=== PATIENT | female | born 1980 | race Native Hawaiian/Other Pacific Islander ===

== ENCOUNTER → 2016-09-12 | Day surgery (SDC) | payer OTHER ==
[~2016-09-12] VITALS: Ht 165.1 cm; Wt 107.5 kg
[~2016-09-12] MED LIST: *morphine SULFATE 8 MG/ML PERIprocedure ONLY ONE; ACETIC ACID 0.25% IRRIGATION ONE; CHLORHEXIDINE GLUCONATE 2 % 1 PACK (2 CLOTHS) TOPICAL PRN; DARV PO; DO NOT ADM ANY ANTICOAGULANT DRUGS PRN; FAMOTIDINE 20 MG/2 ML VIAL ONE; FERR200T PO; FERRIC SUBSULFATE 8 ML TOP SOLN TOPICAL ONE; INSULIN HUMAN REGULAR 1,000 UNITS/10 ML VIAL SQ PRN; IRR IRRIGATION ONE; KETOROLAC TROMETHAMINE 30 MG/ML (IVP) VIAL IV PUSH ONE; KETOROLAC TROMETHAMINE 60 MG/2 ML (IM) VIAL IM ONE; LACTATED RINGER'S 1000 ML IV PRN; LIDOCAINE HCL 1% 20 ML VIAL INFIL ONE; METOPROLOL TARTRATE 25 MG TAB PO PRN; MIDAZOLAM HCL 2 MG/2 ML VIAL ONE; NAPR550 PO; ONDANSETRON HCL 4 MG/2 ML VIAL IV PUSH ONE; POVIDONE IODINE 5% (ANTISEPSIS KIT) 4 APPLICATIONS EACH NARE PRN; PREN0.01 PO; PROPOFOL 200 MG/20 ML AMP IV ONE; SODIUM CHLORID 0.9% 500 ML IV PRN; ceFAZolin INJ 1,000 MG VIAL IV ONE; fentaNYL CITRATE 250 MCG/5 ML AMP ONE; oxyCODONE/ACETAMINOPHEN 5 MG/325 MG TAB PO PRN
[2016-09-12 11:30] VITALS: BP 135/82; PULSE 95; RESP 18; TEMP 98.1; O2SAT 98
[2016-09-12 16:32] VITALS: BP 102/81; PULSE 84; RESP 20; TEMP 97.4; O2SAT 95
--- NOTE | 2016-09-13 09:12 | MP ---
cc: BRANDIE MARTINEZ KELLY L. MD SHOEMAKER, JAMES R. D.O. DATE OF SURGERY: 09/12/2016 PREOPERATIVE DIAGNOSIS Cervical adenocarcinoma in situ. POSTOPERATIVE DIAGNOSIS 1. Cervical adenocarcinoma in situ. 2. Suspicion for invasive cancer. PROCEDURE Examination under anesthesia, multiple endocervical and cervical biopsies, endocervical and endometrial curetting. SURGEON Armida Holliday. ACID TANK CLEANER [employer] Risk Management Intern. ANESTHESIA Laryngeal mask. ESTIMATED BLOOD LOSS 20 cc. HISTORY This is a 35-year-old female with abnormal Pap smear which lead to further evaluation. She underwent a LEEP procedure. The LEEP procedure showed cervical adenocarcinoma in situ. The adenocarcinoma in situ extended to the apex of the LEEP and endocervical curetting proximal to the apex of the LEEP also showed adenocarcinoma in situ such that there were positive margins. She was counseled regarding these findings and the need for further information and to clarify the presence or absence of invasive disease. She has been counseled regarding these findings and recommendations and presents now for that endeavor. She is seen again in the pre-op holding area. The findings are again reviewed. Questions were answered and the plan of care is discussed. She understands and wishes to move forward. FINDINGS On exam under anesthesia the cervix grossly appears abnormal. It is not clear as to whether or not the friable-appearing cervix centrally in the lower portion of the ectocervix is due to some slow healing from the LEEP procedure or neoplastic change. The uterus itself is prominent and retroverted. The cervix is prominent, approximately 4-5 cm. The ectocervix is smooth circumferentially but there is a lot of soft friable tissue in the center of the cervix suspicious for invasive disease. There is no overt pelvic mass or nodularity. There is some mobility to the uterus and cervix. DETAILS OF PROCEDURE The patient is taken to the operating room and placed in dorsal lithotomy position. After laryngeal mask anesthesia was administered a timeout was undertaken. The patient was identified by sight recognition and hospital ID bracelet, and the proposed procedure was reviewed and confirmed. Exam under anesthesia was performed with findings as described above. She was prepped and draped in a sterile fashion with in and out drainage of the bladder. In anticipation of a cone biopsy 0 Vicryl sutures were placed in the 3 o'clock and 9 o'clock position of the cervix for hemostasis and countertraction. This allowed a more extensive evaluation of the cervix with findings as described above such that it was felt that conization was not the best course of action given the central friable-appearing tumor suggestive of invasive disease. Multiple deep tissue biopsies were taken from high in the endocervical canal as well as from the ectocervix. Circumferentially multiple biopsies were combined for permanent histopathologic analysis. Endocervical curetting include curetting of the lower uterine segment and endometrium were obtained, again with a large volume of friable tissue and this was collectively labeled as endocervix. Focal cautery followed by topical Monsel's solution was used which rendered the tissue completely hemostatic. There were no remaining foreign objects in the vagina. Preliminary and final counts were correct. She was returned to dorsal supine position and was pending reversal of anesthesia when I left the operating room to precede her to the post-anesthesia care unit. MD KEYA Minor/AMANDA /8:03 AM /9:05 AM
== END | disposition home or self-care (01) ==
LOC: HSDC 11:05
PROVIDERS: ATTEND Obstetrics & Gynecology Gynecologic Oncology
DX: C53.0 Malignant neoplasm of endocervix (principal); C53.1 Malignant neoplasm of exocervix
CPT/HCPCS: 00940; 57500; 86850; 86900; 86901; 88305; J0690; J1885; J2250; J2270; J2405; J3010; J7120

== ENCOUNTER 2016-11-13 06:22 | Day surgery (SDC) | payer OTHER, MEDICAID ==
[~2016-11-13] VITALS: Ht 167.6 cm; Wt 106.8 kg
[~2016-11-13 06:22] MED LIST changes: -*morphine SULFATE 8 MG/ML PERIprocedure ONLY ONE; -ACETIC ACID 0.25% IRRIGATION ONE; -CHLORHEXIDINE GLUCONATE 2 % 1 PACK (2 CLOTHS) TOPICAL PRN; -DO NOT ADM ANY ANTICOAGULANT DRUGS PRN; -FAMOTIDINE 20 MG/2 ML VIAL ONE; -FERRIC SUBSULFATE 8 ML TOP SOLN TOPICAL ONE; -INSULIN HUMAN REGULAR 1,000 UNITS/10 ML VIAL SQ PRN; -IRR IRRIGATION ONE; -KETOROLAC TROMETHAMINE 30 MG/ML (IVP) VIAL IV PUSH ONE; -KETOROLAC TROMETHAMINE 60 MG/2 ML (IM) VIAL IM ONE; -LACTATED RINGER'S 1000 ML IV PRN; -LIDOCAINE HCL 1% 20 ML VIAL INFIL ONE; -METOPROLOL TARTRATE 25 MG TAB PO PRN; -MIDAZOLAM HCL 2 MG/2 ML VIAL ONE; -ONDANSETRON HCL 4 MG/2 ML VIAL IV PUSH ONE; -POVIDONE IODINE 5% (ANTISEPSIS KIT) 4 APPLICATIONS EACH NARE PRN; -PROPOFOL 200 MG/20 ML AMP IV ONE; -SODIUM CHLORID 0.9% 500 ML IV PRN; -ceFAZolin INJ 1,000 MG VIAL IV ONE; -fentaNYL CITRATE 250 MCG/5 ML AMP ONE; -oxyCODONE/ACETAMINOPHEN 5 MG/325 MG TAB PO PRN
[2016-11-13] MEDS ORDERED: NORG1TAB29 PO (06:52)
[2016-11-13 06:55] VITALS: BP 134/86; PULSE 101; RESP 18; TEMP 98.3; O2SAT 94
[2016-11-13] MEDS ORDERED: SODIUM CHLORIDE 0.9% 1000 ML IV SCH (07:00)
[2016-11-13 07:24] LABS: APTT (PATIENT) 27.6 SEC (24.3-30.1); PROTHROMBIN TIME - PATIENT 10.7 SEC (9.8-11.6)
[2016-11-13] MEDS ORDERED: ceFAZolin 2 GM PREMIX 50 ML - implanted port/tunneled catheter insertion IV SCH (07:30)
[2016-11-13] MEDS ORDERED: VANCOMYCIN 1000 MG/NS 250 ML - implanted port/tunneled catheter IV SCH ×2 (07:30)
[2016-11-13] MEDS ORDERED: MIDAZOLAM HCL 5 MG/5 ML VIAL ONE (07:50)
[2016-11-13] MEDS ORDERED: MIDAZOLAM HCL 2 MG/2 ML VIAL ONE (08:37)
--- NOTE | 2016-11-13 08:53 | PD.RAD ---
Post Procedure Progress Note Pre Procedure Diagnosis: (1) Cervical cancer Post Procedure Diagnosis: (1) Cervical cancer Procedure Date: Nov 13, 2016 Supervising Radiologist: Curt Danielle Estimated blood loss: 2cc Plan of Activity Patient to Unit: ROPU Patient Condition: Good Additional Comments: Port placed via the right IJ catheter in good position OK for use. Full dictated report to follow See PACS Report for procedural detail/treatment Curt Danielle MD Nov 13, 2016 08:53
[2016-11-13 09:00] VITALS: BP 152/99; PULSE 103; RESP 16; TEMP 97.7; O2SAT 97
[2016-11-13] MEDS ORDERED: SODIUM CHLORIDE 0.9% FLUSH 10 ML FLUSH IVF PRN (09:00)
[2016-11-13 09:15] VITALS: BP 141/96; PULSE 94; RESP 18; O2SAT 95
--- NOTE | 2016-11-13 09:28 | RADRPT ---
EXAM DATE/TIME: 11/13/2016 08:07 [facility] COMPARISON: No previous studies available for comparison. INDICATIONS : Patient with cervical cancer in need of [id number] placement. MEDICAL HISTORY : Asthma, Cervical tumor, Anemia SURGICAL HISTORY : None ENCOUNTER: Initial ACUITY: 2 months PAIN SCORE: 0/10 FLUORO TIME: 0.6 minutes IMAGE SERIES: 1 SEDATION TIME: 45 minutes ACCESS: Right internal jugular vein SEDATION: 1.) 6 mg midazolam (Versed) IV 2.) 150 mcg fentanyl (Sublimaze) IV Prophylactic antibiotics were administered with appropriate pre-procedure timing. Vancomycin within 2 hours of procedure, Ancef (or alternative) within 1 hour of procedure. DEVICE: 1. 8 [place]ian single lumen Smart power port with vortex PROCEDURE : 1. Continuous pulse oximetry and EKG monitoring. 2. Intravenous conscious sedation. 3. Ultrasound guidance for venous access. 4. Fluoroscopic guided implantable central venous port placement. The patient was placed supine. The neck was prepped in sterile fashion. Full sterile technique was u sed, including cap, mask, sterile gloves and gown, and a large sterile sheet. Hand hygiene and 2% ch lorhexidine Betadine was utilized per protocol for cutaneous antisepsis with appropriate dry time for site. Sterile gel and sterile probe cover were utilized for ultrasound guidance. The skin and sub cutaneous tissues were infiltrated with local anesthetic solution. Under direct ultrasound guidance, central venous access was accomplished in the targeted vessel. The ultrasound images depicting access guidance were stored and saved to PACS for permanent record. A s ubcutaneous pocket was created using blunt dissection. The port was introduced to the pocket. The c atheter tubing was fed through a subcutaneous tunnel to the venotomy site. The catheter tubing was c ut to a suitable length and then was introduced through a valved Peel-Away sheath and positioned with catheter tubing tip at the cavo-atrial junction level. The pocket incision was closed with subcutic ular Vicryl suture. Steri-Strips were applied. The port was flushed and locked with heparin solutio n per protocol. Sterile dressing was applied to the site. The patient tolerated the procedure well. Conscious sedation was performed with the prescribed dosages and duration as above in the presence of an independent trained radiology nurse to assist in the monitoring of the patient. EKG and oximetry remained stable throughout the procedure. The patient tolerated the procedure well and there were no complications. The patient was sent to post anesthesia recovery in stable condition. CONCLUSION: Uncomplicated ultrasound and fluoroscopic guided implanted central venous port catheter placement as described in detail above. An 8 Gambian Power port was placed. Curt Danielle MD on November 13, 2016 at 9:26 Board Certified Radiologist. This report was verified electronically.
[2016-11-13 09:45] VITALS: BP 133/90; PULSE 90; RESP 18; O2SAT 98
[2016-11-13 10:15] VITALS: BP 147/90; PULSE 97; RESP 18; O2SAT 98
--- NOTE | 2016-11-14 10:53 | RF ---
cc: CLARIBEL MARTINEZ D.O., WHITNEY DO MOLPUS, KELLY L. MD FACTOR, BRAD A. MD F o l l o w u p R e p o r t DATE OF SERVICE: 11/09/2016 AGE: 36 SEX: F Ms. Izaguirre is a 36-year-old female diagnosed with cervical cancer. She comes in today to discuss treat considerations. I discussed her case with Dr. Holliday. A pelvic exam was done. CT simulation ordered for Sunday. On pelvic exam noted gross tumor volume, endophytic lesion not involving the vaginal area/vaginal wall. Discussed her case Dr. Holliday as well. Consider boost to deep pelvic node as well as the right external iliac/inguinal node. On exam no suspicious lymphadenopathy in the bilateral groin area. PLAN Proceed with definitive chemoradiation therapy. Anticipate high-dose rate brachytherapy as well. Adan Doan MD Radiation Oncologist [facility]/BT /3:40 PM /10:45 AM MTDD
== END 2016-11-13 11:30 | disposition home or self-care (01) ==
LOC: HROP 06:22 → HRIP 06:23 → HROP 11:30
PROVIDERS: ATTEND Obstetrics & Gynecology Gynecologic Oncology
DX: C53.9 Malignant neoplasm of cervix uteri, unspecified (principal); J45.909 Unspecified asthma, uncomplicated; D64.9 Anemia, unspecified; Z01.818 Encounter for other preprocedural examination
CPT/HCPCS: 36561; 76937; 77001; 85610; 85730; 99152; 99153; C1788; J0690; J1642; J2250; J3010; J3370; J7030; J7050

== ENCOUNTER 2017-06-25 06:06 | Day surgery (SDC) | payer OTHER, MEDICAID ==
[~2017-06-25] VITALS: Ht 165.1 cm; Wt 106.6 kg
[~2017-06-25 06:06] MED LIST changes: -DARV PO; -FERR200T PO; -NAPR550 PO; +NORG1TAB29 PO; -PREN0.01 PO
[2017-06-25 06:53] VITALS: BP 138/94; PULSE 89; RESP 20; TEMP 97.9; O2SAT 99
[2017-06-25] MEDS ORDERED: SODIUM CHLORIDE 0.9% 1000 ML IV SCH (07:00)
[2017-06-25] MEDS: ceFAZolin 2 GM PREMIX 50 ML - implanted port removal IV SCH ×2 (07:30→09:55)
[2017-06-25] MEDS ORDERED: fentaNYL CITRATE 250 MCG/5 ML AMP ONE (07:44)
[2017-06-25] MEDS ORDERED: MIDAZOLAM HCL 5 MG/5 ML VIAL ONE (07:44)
[2017-06-25] MEDS ORDERED: LIDOCAINE 1%/EPINEPHrine 1:100,000 SOLN 30 ML VIAL ONE (07:56)
[2017-06-25 08:45] VITALS: BP 131/83; PULSE 117; RESP 16; TEMP 98.3; O2SAT 97
--- NOTE | 2017-06-25 08:45 | PD.RAD ---
Post Procedure Progress Note Pre Procedure Diagnosis: (1) Cervical cancer Post Procedure Diagnosis: (1) Cervical cancer Procedure Date: Jun 25, 2017 Supervising Radiologist: Curt Danielle Estimated blood loss: 5cc Anesthesia: Local, Conscious Sedation Plan of Activity Patient to Unit: ROPU Patient Condition: Good Additional Comments: Port removed from the right chest without difficulty. Large keloid scar excised from above the port. Full dictated report to follow See PACS Report for procedural detail/treatment Curt Danielle MD Jun 25, 2017 08:45
[2017-06-25 09:00] VITALS: BP 116/73; PULSE 103; RESP 16; O2SAT 96
[2017-06-25 09:30] VITALS: BP 117/69; PULSE 104; O2SAT 96
[2017-06-25 10:00] VITALS: BP 125/75; PULSE 102; O2SAT 96
[2017-06-25 10:30] VITALS: BP 130/71; PULSE 101; RESP 16; O2SAT 96
--- NOTE | 2017-06-25 13:56 | RADRPT ---
EXAM DATE/TIME: 06/25/2017 08:46 [facility] COMPARISON: [id number] PLCMT, POWERPORT, W US, RIGHT, November 13, 2016, 8:07. INDICATIONS : Patient with history of cervical cancer in need of port removal following completion of treatment. MEDICAL HISTORY : Cervical Cancer Anemia Asthma SURGICAL HISTORY : None ENCOUNTER: Initial ACUITY: 1 year PAIN SCORE: 0/10 LOCATION: N/A SEDATION TIME: 30 minutes 1.) 5 mg midazolam (Versed) IV 2.) 250 mcg fentanyl (Sublimaze) IV Prophylactic antibiotics were administered with appropriate pre-procedure timing. Vancomycin within 2 hrs of procedure, Ancef (or alternative) within 1 hr of procedure. PROCEDURE : 1. Removal of [id number]. 2. Conscious sedation with continuous EKG and oximetry monitoring. 3. Fluoroscopic guidance. The risks, benefits and alternatives to the procedure were explained and verbal and written consent w as obtained. The patient was placed supine. The port was prepped in sterile fashion. Full sterile t echnique was used, including cap, mask, sterile gloves and gown, and a large sterile sheet. Hand hyg iene and 2% chlorhexidine and/or Betadine/alcohol prep was utilized per protocol for cutaneous antise psis. The skin and subcutaneous tissues were infiltrated with local anesthetic solution the subcutaneous po cket was opened. The port was dissected from the subcutaneous tissues and easily removed in one piec e. The pocket incision was closed with subcuticular Vicryl suture. Steri-Strips were applied. Conscious sedation was performed with the prescribed dosages and duration as above in the presence of an independent trained radiology nurse to assist in the monitoring of the patient. EKG and oximetry remained stable throughout the procedure. The patient tolerated the procedure well and there were n o complications. The patient was sent to post anesthesia recovery in stable condition. CONCLUSION: Uncomplicated port removal as above. Curt Danielle MD on June 25, 2017 at 13:54 Board Certified Radiologist. This report was verified electronically.
== END 2017-06-25 10:45 | disposition home or self-care (01) ==
LOC: HROP 06:06 → HRIP 06:09 → HROP 10:45
PROVIDERS: ATTEND Obstetrics & Gynecology Gynecologic Oncology
DX: Z45.2 Encounter for adjustment and management of vascular access device (principal); C53.9 Malignant neoplasm of cervix uteri, unspecified
CPT/HCPCS: 36590; 99152; 99153; J0690; J2250; J3010; J7030